=== PATIENT | male | born 1995 | race Hispanic/Latino ===

== ENCOUNTER 2020-11-01 10:59 | Emergency (ER) | payer BC, OTHER ==
--- NOTE | 2020-11-01 11:39 | RAD ---
EXAM: Two views chest PROVIDED CLINICAL HISTORY: Pain in mid back was taking a deep breath. Started one day ago. COMPARISON: None FINDINGS: Cardiac silhouette and pulmonary vasculature are within normal limits. The lungs are clear. The osse ous structures have a normal appearance. IMPRESSION: No acute cardiopulmonary process.
== END 2020-11-01 11:54 | disposition home or self-care (01) ==
LOC: ERS 10:59
DX: M54.6 Pain in thoracic spine (principal)
CPT/HCPCS: 71046